=== PATIENT | female | born 1960 | race Caucasian/White ===

== ENCOUNTER 2019-03-22 20:34 | Emergency (ER) | payer MEDICAID ==
[~2019-03-22] VITALS: Ht 170.2 cm; Wt 78.9 kg
[~2019-03-22 20:34] MED LIST: ACET-503 PO; LISI10TA11 PO; MELO15TA11 PO; RANI-287 PO
[2019-03-22 20:41] VITALS: BP 180/95
--- NOTE | 2019-03-22 21:54 | NUR ---
Pt wheel chair assisted to bed 8.
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
--- NOTE | 2019-03-22 22:54 | NUR ---
PT MOVED TO CHAIR B
[2019-03-22] MEDS ORDERED: HYDROcodone/APAP 5/325 MG 1 TAB TAB PO ONE ×2 (23:30→23:45)
--- NOTE | 2019-03-22 23:40 | NUR ---
SEEN AND EXAMINED BY AMITA, WITH ORDERS AND CARRIED OUT.
--- NOTE | 2019-03-23 00:53 | NUR ---
PT RETURN FROM RAD
--- NOTE | 2019-03-23 00:53 | NUR ---
BACK FROM XRAY VIA WHEEL CHAIR WITH WATCH INSPECTOR
--- NOTE | 2019-03-23 02:05 | NUR ---
FABRICATED SPLINT APPLIED BY MABEL WORKMAN AND WRAPPED WITH SRAVANTHI WRAP. CMS IN TACT. CAP REFILL <3. PT REPORTS COMFORTABLE FIT.
[2019-03-23 02:10] VITALS: BP 156/87
--- NOTE | 2019-03-23 02:10 | NUR ---
Patient discharged with v/s stable. Written and verbal after care instructions given and explained. Patient alert, oriented and verbalized understanding of instructions. Wheel Chair Assisted with to car. All questions addressed prior to discharge. ID band removed. Patient advised to follow up with PMD. Rx of [place] given. Patient educated on indication of medication including possible reaction and side effects. Opportunity to ask questions provided and answered.
== END 2019-03-23 02:10 | disposition home or self-care (01) ==
LOC: MED 20:34
DX: M25.572 Pain in left ankle and joints of left foot (principal); K21.9 Gastro-esophageal reflux disease without esophagitis; I10 Essential (primary) hypertension; Z88.8 Allergy status to other drugs, medicaments and biological substances; Z79.891 Long term (current) use of opiate analgesic; Z79.899 Other long term (current) drug therapy; Z79.1 Long term (current) use of non-steroidal anti-inflammatories (NSAID)
CPT/HCPCS: 29515; 73610; 73620; 99283; Q0092

== ENCOUNTER 2021-08-22 05:20 | Emergency (ER) | payer OTHER, MEDICAID ==
[~2021-08-22] VITALS: Ht 170.2 cm; Wt 78.9 kg
[~2021-08-22 05:20] MED LIST changes: +LISI-486 PO; -LISI10TA11 PO
[2021-08-22 05:23] VITALS: BP 177/100
--- NOTE | 2021-08-22 05:23 | NUR ---
Placed on bed 8.
--- NOTE | 2021-08-22 05:26 | NUR ---
Edin sinha in [facility] - 08/22/21 at 0527 by DONNA PT STEFFEN ESTRADA. TAKEN TO BED 8
--- NOTE | 2021-08-22 05:33 | NUR ---
61/F BIBA C/C 12/05 [place] HIP PAIN THAT STARTED X30 MIN AGO. PATIETN STATED "IT FEELS LIKE PRESSURE AND STABBING PAIN, I BEEN WALKING MY NEIGHBORS DOG AND WHEN I WOKE UP THIS MORNING IT JUST HURT SO BAD". PATIENT APPEARS TO BE IN DISTRESS DUE TO THE PAIN. RR ARE EVEN AND UNLABORED. AAOX4. PER AMBUL PATIENT AMBLE TO AMBULATE WITH ASSISTANCE. PATIENT DENIES TAKING MEDICATION PRIOR TO ARRIVAL. PLACED ON BED. BED LOW AND LOCKED. ALL NEEDS MET. PMHX ASTHMA, HTN, ARTHRITIS ALLERGIES PCN
--- NOTE | 2021-08-22 05:50 | NUR ---
PATIETN CRYING AND STATING "IM IN SO MUCH PAIN. I CANT MOVE." MD SCHMID MADE AWARE
[2021-08-22] MEDS ORDERED: IBUPROFEN 800 MG TAB PO ONE (06:00)
--- NOTE | 2021-08-22 06:06 | NUR ---
VERBAL ORDER FROM MD SCHMID. IBUPROFEN PO 800MG ONCE FOR HIP PAIN. REPEATED. ORDERS CARRIED OUT.
--- NOTE | 2021-08-22 06:15 | NUR ---
PATIENT CONTINUES TO CRY. STATING "I CANT GET COMFORTABLE. IT HURTS" MD GAMING AWARE.
[2021-08-22] MEDS ORDERED: oxyCODONE/APAP 5/325 MG 1 TAB TAB PO ONE (06:35)
[2021-08-22] MEDS ORDERED: LIDOCAINE 5% 1 EA PATCH TP SCH (06:35)
--- NOTE | 2021-08-22 06:35 | NUR ---
PATIENT STATED SHE HAD 10/10 [place] HIP PAIN. MD AWARE. ORDERS CARRIED OUT
[2021-08-22] MEDS: BACLOFEN 10 MG TAB PO SCH (06:40)
--- NOTE | 2021-08-22 07:17 | NUR ---
REPORT RECEIVED FROM MESHA GARCIA. ASSUMED CARE AT THIS TIME
--- NOTE | 2021-08-22 07:17 | NUR ---
REPORT GIVEN TO RADHA LOMELI. TRANSFER OF CARE.
--- NOTE | 2021-08-22 07:45 | NUR ---
61YO FEMALE PT C/O BILATERAL HIP PAIN. PT STATES DOING CHORES XYESTERDAY FOR NEIGHBOR WHICH REQUIRED MORE PHYSICAL ACTIVTY THAN NORMAL. PT REPORT DECREASED PAIN, 5/10. PT HAS FULL ROM WITH EASE. PT AMBULATORY WITH STEADY GAIT. PT RESTING SUPINE POSITION. RESPIRATIONS EVEN AND UNLABORED. BED AT LOWEST POSITION, BED RAILS UP X1.
[2021-08-22 08:11] LABS: APPEARANCE,URINE CLEAR (CLEAR); BILIRUBIN,URINE NEGATIVE (NEGATIVE); BLOOD, URINE TRACE-I (NEGATIVE); COLOR,URINE YELLOW (YELLOW); LEUKOCYTE ESTERASE ,URINE NEGATIVE (NEGATIVE); NITRITE, URINE NEGATIVE (NEGATIVE); UGLUCOSE NEGATIVE (NEGATIVE)
[2021-08-22] MEDS ORDERED: BACL10TA4 PO (08:23)
[2021-08-22] MEDS ORDERED: IBUP-2213 PO (08:23)
[2021-08-22] MEDS ORDERED: XYLO TP (08:23)
[2021-08-22 08:39] VITALS: BP 124/77
--- NOTE | 2021-08-22 08:39 | NUR ---
Patient discharged with v/s stable. Written and verbal after care instructions FOR BACK PAIN, BACK EXERCISES, AND LUMBAR STRAIN given and explained. Patient alert, oriented and verbalized understanding of instructions. Ambulatory with steady gait. All questions addressed prior to discharge. ID band removed. Patient advised to follow up with PMD. Rx of BACLOFEN, IBUPROFEN, AND LIDOCAINE HYD given. Opportunity to ask questions provided and answered.
--- NOTE | 2021-08-22 08:40 | NUR ---
Chart checked and completed. The patient's care was reviewed and supervised by Karen Albright RN.
[2021-08-22 08:48] LABS: CALCIUM OXALATE CRYSTALS,UR None Seen /HPF (None Seen); COARSE GRANULAR CASTS,URINE None Seen /LPF (None Seen); FINE GRANULAR CASTS,URINE None Seen /LPF (None Seen); HYALINE CASTS, URINE None Seen /LPF (None Seen); OTHER CASTS, URINE None Seen /LPF (None Seen); OTHER CRYSTALS,URINE None Seen /HPF (None Seen); RBC,URINE 0-5 /HPF (0-5); RED BLOOD CELL CASTS,URINE None Seen /LPF (None Seen); TRICHOMONAS,URINE None Seen /HPF (None Seen); TRIPLE PHOSPHATE CRYSTAL,UR None Seen /HPF (None Seen); URIC ACID CRYSTALS,URINE None Seen /HPF (None Seen); URINE AMORPHOUS URATE None Seen /HPF (None Seen); WAXY CASTS,URINE None Seen /LPF (None Seen); WBC,URINE 0-5 /HPF (0-5); YEAST,URINE None Seen /HPF (None Seen)
== END 2021-08-22 08:39 | disposition home or self-care (01) ==
LOC: MED 05:20
DX: S39.012A Strain of muscle, fascia and tendon of lower back, initial encounter (principal); M54.42 Lumbago with sciatica, left side; M54.41 Lumbago with sciatica, right side; K21.9 Gastro-esophageal reflux disease without esophagitis; I10 Essential (primary) hypertension; Z88.0 Allergy status to penicillin; Z79.899 Other long term (current) drug therapy; X58.XXXA Exposure to other specified factors, initial encounter; Y93.K1 Activity, walking an animal; Y92.89 Other specified places as the place of occurrence of the external cause; Y99.8 Other external cause status
CPT/HCPCS: 81001; 99284